=== PATIENT | female | born 1975 | race Two or more races ===

== ENCOUNTER → 2021-12-12 | Emergency (ER) | payer OTHER ==
[~2021-12-12] VITALS: Ht 157.5 cm; Wt 73.5 kg
[~2021-12-12] MED LIST: FOLIC ACID20 MG PO; MEDROLPACK PO; ZITHROMAX500 MG PO
== END | disposition home or self-care (01) ==
LOC: ER 16:47
DX: J06.9 Acute upper respiratory infection, unspecified (principal); Z20.822 Contact with and (suspected) exposure to COVID-19; Z88.2 Allergy status to sulfonamides